=== PATIENT | female | born 1985 | race Caucasian/White ===

== ENCOUNTER → 2022-12-24 09:49 | Outpatient (BNVA) | payer MEDICAID, SELFPAY | PROVIDERS: PCP Family Medicine; Referring Provider Family Medicine; Visit Provider Surgery | DX: D17.9 Benign lipomatous neoplasm, unspecified (principal); R73.03 Prediabetes | CPT/HCPCS: 99202 ==

== ENCOUNTER 2023-01-06 11:30 | Day surgery (SDC) | payer MEDICAID, SELFPAY ==
[2023-01-01 15:53] VITALS: BMI 33.0
--- NOTE | 2023-01-03 09:52 | HO.ANESPROP2 ---
Documented by User: Mary Hancock NP 01/03/23 09:53 HPI - Anesthesia Eval Consult details Narrative: 37yo F for Excision Left Mid Back Lipoma PMFSH Active Problems Active Problems: All Active Problems (Updated 01/01/23 @ 15:52 by Abby Voss RN) Lipoma (Acute) Past Medical History Medical History (Updated 01/01/23 @ 15:52 by Abby Voss RN) Elevated liver enzymes Kidney stone Pre-diabetes Family History Family History (Updated 12/24/22 @ 10:13 by Gordy Coppola CMA) Father Diabetes Mother Hypertension Surgical History Surgical History (Updated 01/01/23 @ 15:52 by Abby Voss RN) Hx of dilation and curettage Social History Social History (Updated 12/24/22 @ 10:14 by Gordy Coppola CMA) Household Members Other:: son Are you a primary manager intensive care unit to a significant other at home: No Do you presently have visiting nurse or other home services: No Alcohol intake: current Alcohol intake frequency: holidays/special occasions only Patient Tobacco Use Status: Never used Tobacco Use of substances other than those prescribed or required for medical reasons: Yes Substance Use Frequency: Occasionally Have you been hit, kicked, punched, or otherwise hurt by someone within the past year? If so, by whom?: No Are you DNR?: No Advance Directives: No Advance Directives Information Provided: Yes Advance Directives on File: No Recently lost weight without trying: No Eating poorly because of decreased appetite: No Nutrition Risks: No Nutritional Risk Patient : No Meds Allergies Allergy/AdvReac Type Severity Reaction Status Date / Time No Known Allergies Allergy Verified 01/01/23 15:52 Home Medications Medication Instructions Recorded Confirmed Last Taken Type No Known Home Meds 01/01/23 01/01/23 Unknown History Exam Exam Date and Time: January 03, 2023 0952 Height,Weight and Vital Signs: Height 5 ft 8 in Weight 98.43 kg Assessment and Plan Assessment Anesthesia Assessment: Chart Reviewed Documented by User: Viola Spangler MD 01/06/23 12:19 [facility] Past Medical History Medical History (Updated 01/01/23 @ 15:52 by Abby Voss, RN) Elevated liver enzymes Kidney stone Pre-diabetes Family History Family History (Updated 12/24/22 @ 10:13 by Gordy Coppola CMA) Father Diabetes Mother Hypertension Family history of problems with anesthesia: No Surgical History Surgical History (Updated 01/01/23 @ 15:52 by Abby Voss, BEBE) Hx of dilation and curettage History of Problems with Anesthesia: No Social History Social History (Updated 12/24/22 @ 10:14 by Gordy Coppola CMA) Household Members Other:: son Are you a primary manager intensive care unit to a significant other at home: No Do you presently have visiting nurse or other home services: No Alcohol intake: current Alcohol intake frequency: holidays/special occasions only Patient Tobacco Use Status: Never used Tobacco Use of substances other than those prescribed or required for medical reasons: Yes Substance Use Frequency: Occasionally Have you been hit, kicked, punched, or otherwise hurt by someone within the past year? If so, by whom?: No Are you DNR?: No Advance Directives: No Advance Directives Information Provided: Yes Advance Directives on File: No Recently lost weight without trying: No Eating poorly because of decreased appetite: No Nutrition Risks: No Nutritional Risk Patient : No Meds Allergies Allergy/AdvReac Type Severity Reaction Status Date / Time No Known Allergies Allergy Verified 01/01/23 15:52 Home Medications Medication Instructions Recorded Confirmed Last Taken Type No Known Home Meds 01/01/23 01/01/23 Unknown History Exam Airway Mallampati Class: II TM Dist: >3cm Neck ROM: Full Heart: rrr Lungs: cta Assessment and Plan Assessment Anesthesia Assessment: Anesthesia Plan Discussed Final Anesthetic Review Family History of Problems with Anesthesia: No History of Problems with Anesthesia: No NPO: Yes ASA Class: II Final Preanesthetic Review: No Changes in Pt Med Stat, Meds/Allgs Chart Reviewed and Consent Obtained/Reviewed Patient Risk: Intermediate Procedure Risk: Intermediate Anesthetic Plan Anesthetic Plan: MAC: Disposition: Standard PACU
--- NOTE | 2023-01-06 06:55 | MHC.SHP ---
Pre-Procedural Eval Section A Date of Service: 01/06/23 The patient is an INPATIENT: No Changes since office visit: No Cold of Flu in the past 2 weeks, No New Medical Problems, No Changes in Medication and No Patient answered all questions The History & Physical has been completed within 30 days and I have reviewed it.: Yes Section B Chief Complaint: Benign lipomatous neoplasm, unspecified Allergies: Allergies Allergy/AdvReac Type Severity Reaction Status Date / Time No Known Allergies Allergy Verified 01/01/23 15:52 Plan I have reviewed the history and physical and performed a pertinent physical examination on my patient. No changes have occurred unless specified. Time Spent With Patient Time: Total time managing care of this patient today ____ minutes.
[2023-01-06 11:59] VITALS: BP 146/95; PULSE 85; RESP 18; TEMP 36.8; O2SAT 96; BMI 31.9
[2023-01-06 12:02] LABS: UPreg QC Valid YES; Urine Pregnancy NEGATIVE (NEGATIVE)
--- NOTE | 2023-01-06 12:13 | PC.NURSE ---
pt reports x 3 days having npc, small amount of thin clear drainage, seldom npc, body aches, no fever. Dr. Faulkner floor anestesiologist and Dr. Renner room anesthesiologist conversing. Pt wants to proceed with local anesthesia.
[2023-01-06] MEDS: Lactated Ringers 1,000 ML 100 ML IVCONT (12:29)
--- NOTE | 2023-01-06 12:40 | PC.NURSE ---
late entry: decision to move forward with monitored anesthesia
--- NOTE | 2023-01-06 13:06 | P.OP_ITS ---
Operative Note Operative Note Date of Service: 01/06/23 Narrative: Preoperative diagnosis: [] Giant left mid back lipoma Postop diagnosis: [] Same Procedure [] excision left mid back lipoma Surgeon: [] [employer] Fundraiser: [] TODD Gilman Type of Anesthesia: [] IV sedation with local Indication for surgery: [] Final specimen size approximately 6 x 5 cm consistent with a giant lipoma Findings: [] Patient brought to the operating room, placed on the operating table in supine position, after an adequate level of IV sedation was does induced, patient was placed in right lateral decubitus position. Left mid back was prepped and draped in usual sterile fashion. After infiltration with 1% lidocaine and 0.5 bupivacaine, a transverse incision was made over the lipoma in question carried down through skin, subcutaneous tissue, were superior and inferior skin flaps were developed using electro Bovie. The large lipoma was circumferentially dissected out using Bovie. This extended down to the muscle fascia. Final size the specimen was approximately 6 x 5 cm. Specimen was sent to pathology. Wound was irrigated, secured hemostasis, and closed using interrupted inverted deep dermal 3-0 Vicryl sutures followed by running subcuticular 4-0 Vicryl suture. Steri-Strips and sterile dressings were applied. Sponge, needle, and instrument counts were reported to be correct. Patient tolerated the procedure well emerge from anesthesia stable condition. EBL minimum
[2023-01-06 13:11] VITALS: BP 94/78; PULSE 87; RESP 16; TEMP 37; O2SAT 98
[2023-01-06 13:26] VITALS: BP 148/86; PULSE 84; RESP 18; TEMP 37.2; O2SAT 100
== END 2023-01-06 14:20 | disposition home or self-care (01) ==
PROVIDERS: Nurse Practitioner; PCP Family Medicine; Visit Provider Surgery
PROC: (CPT 21931; principal; 2023-01-06 13:20)
DX: D17.1 Benign lipomatous neoplasm of skin and subcutaneous tissue of trunk (principal)
CPT/HCPCS: 21931; 81025; 88304; J0690; J2250; J2795; J3010

== ENCOUNTER → 2023-01-14 11:17 | Outpatient (BNVA) | payer MEDICAID, SELFPAY | PROVIDERS: PCP Family Medicine; Referring Provider Family Medicine; Visit Provider Surgery | DX: D17.39 Benign lipomatous neoplasm of skin and subcutaneous tissue of other sites (principal) | CPT/HCPCS: 99212 ==

== ENCOUNTER 2023-06-09 18:37 | Outpatient (REF) | payer MEDICAID, SELFPAY | END 2023-06-09 18:38 | disposition home or self-care (01) | LOC: HO.CHCLNP 18:37 | PROVIDERS: Visit Provider Family Medicine | DX: R10.2 Pelvic and perineal pain (principal) | CPT/HCPCS: 87086 ==

== ENCOUNTER 2023-06-10 09:32 | Outpatient (REF) | payer MEDICAID, SELFPAY ==
[2023-06-10 14:35] LABS: MANUAL DIFF FLAG NO
[2023-06-10 14:39] LABS: Basophils Absolute Auto 0.1 X10*3/uL (0.0-0.2); Eosinophils Absolute Auto 0.2 X10*3/uL (0.0-0.4); Eosinophils Percent Auto 2.5 % (0-4); Hemoglobin 13.5 g/dl (12.0-16.0); Imm Gran Abs Auto 0.04 X10*3/uL (0.00-0.03); Imm Gran Pct Auto 0.6 % (0.0-0.4); Lymphocytes Absolute Auto 2.1 X10*3/uL (1.2-4.9); Lymphocytes Percent Auto 29.5 % (20-40); Mean Corpuscular HGB Conc 32.1 g/dl (31.0-35.0); Mean Corpuscular Hemoglobin 27.1 pg (27.0-33.0); Mean Corpuscular Volume 84.2 fL (80.0-98.0); Mean Platelet Volume 10.4 fL (9.4-12.3); Monocytes Absolute Auto 0.6 X10*3/uL (0.1-1.2); Monocytes Percent Auto 7.7 % (2-11); Neutrophils Absolute Auto 4.2 x10*3/uL (2.0-8.3); Neutrophils Percent Auto 58.7 % (45-73); Platelet Count 329 X10*3/uL (160-400); Red Blood Count 4.99 X10*6/uL (4.20-5.50); Red Cell Distribution Width 13.2 % (11.0-16.0); White Blood Count 7.1 X10*3/uL (4.8-10.8)
[2023-06-10 15:00] LABS: Alanine Aminotransferase 81 U/L (0-31); Albumin Level 4.4 g/dL (3.5-5.0); Alkaline Phosphatase 49 U/L (39-117); Anion Gap 13 (12-20); Aspartate Amino Transferase 45 U/L (5-31); Bilirubin Total 0.7 mg/dL (0.0-1.0); Blood Urea Nitrogen 10 mg/dL (9-16); Calcium 9.6 mg/dL (8.4-10.2); Carbon Dioxide 21 mmol/L (22-29); Chloride 108 mmol/L (96-108); Cholesterol 193 mg/dL (<200); Estimated Glomerular Filt Rate > 60; Glucose Fasting 91 mg/dL (60-99); HDL Cholesterol 50 mg/dL (>40); LDL Cholesterol Calculated 128 mg/dL (<100); Sodium 138 mmol/L (135-145); Total Protein 7.6 g/dL (6.5-8.0); Triglycerides 78 mg/dL (<150)
[2023-06-10 15:15] LABS: TSH reflex Free T4 1.67 uIU/mL (0.32-4.0)
== END 2023-06-10 09:33 | disposition home or self-care (01) ==
LOC: HO.CHCLDS 09:32
PROVIDERS: Visit Provider Family Medicine
DX: E66.09 Other obesity due to excess calories (principal); Z68.36 Body mass index [BMI] 36.0-36.9, adult; R10.84 Generalized abdominal pain
CPT/HCPCS: 36415; 80053; 80061; 84443; 85025

== ENCOUNTER 2023-07-15 11:01 | Outpatient (REF) | payer MEDICAID, SELFPAY ==
--- NOTE | ~2023-07-15 | US_ITS ---
EXAMINATION: US PELVIS COMPLETE CLINICAL INFORMATION: Pelvic pain COMPARISON: None TECHNIQUE: Transabdominal and transvaginal imaging was performed. FINDINGS: The uterus is of normal size and echogenicity measuring 8.7 x 3.9 x 4.7 cm. A regular homogeneous endometrium is identified measuring 0.5 cm. A subserosal 1.4 cm myoma in the posterior body of the uterus. IUD in place. Nabothian cysts in the cervix. Both ovaries are of normal size and echogenicity. The right measures 3.1 x 2.2 x 2.0 cm for a volume of 7.1 mL. The left measures 1.9 x 3.3 x 2.3 cm for a volume of 7.6 mL. There is no pelvic free fluid. US/US pelvic and transvaginal IMPRESSION: 1. A 1.4 cm subserosal myoma in the posterior body of the uterus. 2. IUD in place. 3. Unremarkable sonographic appearance of the ovaries.
== END 2023-07-15 11:02 | disposition home or self-care (01) ==
LOC: HO.US 11:01
PROVIDERS: PCP Family Medicine; Visit Provider Family Medicine
DX: R10.2 Pelvic and perineal pain (principal)
CPT/HCPCS: 76830; 76856